=== PATIENT | male | born 1995 | race Hispanic/Latino ===

== ENCOUNTER 2023-04-27 01:45 | Emergency (ER) | payer OTHER, SELFPAY | END 2023-04-27 02:12 | disposition home or self-care (01) | LOC: MADERS 01:45 | DX: J01.90 Acute sinusitis, unspecified (principal); I10 Essential (primary) hypertension; E11.9 Type 2 diabetes mellitus without complications; E66.9 Obesity, unspecified | CPT/HCPCS: 99283 ==